=== PATIENT | male | born 1965 | race Caucasian/White ===

== ENCOUNTER 2023-02-05 17:36 | Emergency (ER) | payer BC ==
[2023-02-05 17:41] VITALS: BP 134/90; PULSE 66
[2023-02-05] MEDS ORDERED: Diphtheria,Pertussis(Acell),Tetanus Vaccine 0.5 ML Syringe IM ONE (17:57)
[2023-02-05] MEDS ORDERED: Lidocaine 1% 5 ML VIAL INJECT ONE ×3 (17:57→18:45)
[2023-02-05] MEDS ORDERED: cefTRIAXone 1 GM Vial IM ONE (18:44)
[2023-02-05] MEDS ORDERED: Take Home: Cephalexin 500 MG Cap, 6 Cap Pack PO ONE (18:51)
== END 2023-02-05 19:00 | disposition home or self-care (01) ==
LOC: SUPCPDRO 17:36 → LL.ED 17:36
DX: S01.81XA Laceration without foreign body of other part of head, initial encounter (principal); W01.0XXA Fall on same level from slipping, tripping and stumbling without subsequent striking against object, initial encounter
CPT/HCPCS: 12013; 90471; 90715; 96372; 99282-25; 99283; A9270-GY; J0696; J3490